=== PATIENT | male | born 1975 ===

== ENCOUNTER 2021-05-29 17:01 | Emergency (ER) | payer BC ==
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
--- NOTE | 2021-05-30 09:52 | CT ---
Date of Service: 05/29/21 Clinical Data: Shakiness today. UNENHANCED BRAIN CT: Multislice axial acquisition without IV contrast was performed. No masses or mass effect. No intracranial hemorrhage. No evidence of acute or subacute infarct. No osseous abnormalities. IMPRESSION: No acute intracranial abnormalities. [id number] [facility]
== END 2021-05-29 18:35 | disposition home or self-care (01) ==
LOC: LB.ED 17:01
DX: R25.1 Tremor, unspecified (principal); Z72.0 Tobacco use
CPT/HCPCS: 36415; 70450; 80053; 81001; 84443; 85025; 99284-25

== ENCOUNTER 2021-08-12 03:17 | Emergency (ER) | payer BC ==
[2021-08-12] MEDS ORDERED: Nitroglycerin 0.4 MG Tab.SL SL PRN (03:55)
[2021-08-12] MEDS ORDERED: Sodium Chloride 0.9% 10 ML Syringe FLUSH PRN (03:55)
[2021-08-12] MEDS ORDERED: Sodium Chloride 0.9% 1,000 ML IV SCH (04:00)
== END 2021-08-12 05:10 | disposition home or self-care (01) ==
LOC: LB.ED 03:17
DX: D64.9 Anemia, unspecified (principal); E86.0 Dehydration
CPT/HCPCS: 36415; 80048; 84484; 85025; 93005; 99285; J7030